=== PATIENT | male | born 1980 | race Caucasian/White ===

== ENCOUNTER 2021-06-11 15:38 | Outpatient (CLI) | payer OTHER, SELFPAY ==
--- NOTE | 2021-06-11 16:00 | MR_ITS ---
WS: [id number] MRI LUMBAR SPINE NONCONTRAST HISTORY: DDD, DISC herniation with MYELOPATHY, HX OF TRAUMATIC VERTEBRAL FX COMPARISON: Lumbar radiographs 08/08/2020 TECHNIQUE: Sagittal and axial multisequence imaging is submitted. Multilevel mild disc bulging and facet joint arthritis throughout the cervical and thoracic spine. No cord compression. Central disc protrusion at T3-4 does contact the ventral thoracic cord. Mild straightening of the normal lumbar lordosis. Anterior and posterior lumbar fusion at the L5-S1 l evel. The disc at L5-S1 is obscured by artifact from the hardware. There is mild disc desiccation at L3-4 and L4-5. No marrow edema or fracture. Conus terminates normally at L1-2 disc level. L1-L2: Normal. L2-L3: Normal. L3-L4: Mild annular disc bulge with a central disc protrusion with fissure. Mild ligamentum flavum an d facet arthritis with hypertrophy. Small amount of fluid in the facet joints. No significant stenosi s. L4-L5: Diffuse annular disc bulge. Mild central stenosis. There is a central disc protrusion which ex tends caudad to the disc space with mild contact and deformity of the ventral thecal sac. Encroachmen t also into the lateral recesses and proximal foramina. Moderate ligamentum flavum hypertrophy and fa cet arthritis. There is contact and compression upon the traversing L5 nerve roots bilaterally but gr eatest on the LEFT. Moderate subarticular recess stenosis with only mild foraminal stenosis. L5-S1: Osteophytic ridging and possible small foraminal disc protrusions with annular fissures. There is a tiny central disc protrusion. Mild RIGHT foraminal stenosis. No contact on the S1 nerve roots. Paravertebral soft tissues are negative. MR/MR lumbar spine wo con* [id number] IMPRESSION: 1. Prior anterior and posterior lumbar fusion at L5-S1. 2. Disc contact and deformity upon the traversing L5 nerve roots greatest on t he LEFT. Moderate bilateral subarticular recess stenosis and mild foraminal ana nosis at L4-5. Mild central stenosis at L4-5 with a central disc protrusion. 3. Mild facet arthritis and ligamentum flavum hypertrophy at L3-4.
== END 2021-06-11 15:39 | disposition home or self-care (01) ==
PROVIDERS: PCP Nurse Practitioner Family; Visit Provider Family Medicine
DX: M51.36 Other intervertebral disc degeneration, lumbar region (principal); M51.06 Intervertebral disc disorders with myelopathy, lumbar region; Z87.81 Personal history of (healed) traumatic fracture; M43.27 Fusion of spine, lumbosacral region; M48.061 Spinal stenosis, lumbar region without neurogenic claudication
CPT/HCPCS: 72148

== ENCOUNTER 2021-07-01 11:43 | Emergency (ER) | payer OTHER, SELFPAY ==
[2021-07-01 12:19] VITALS: RESP 14; BMI 24.3
[2021-07-01 12:44] VITALS: BP 136/87; PULSE 97; RESP 14; O2SAT 97
--- NOTE | 2021-07-01 12:45 | ED_ITS ---
HPI - Back Pain/Injury General: Chief Complaint: Back Pain/Injury Stated Complaint: BACK PAIN Time Seen by Provider: 07/01/21 12:21 Source: patient Mode of arrival: ambulatory Limitations: no limitations History of Present Illness: HPI Narrative: Patient is a 41-year-old male who presents to the ED today with a complaint of acute on chronic lower back pain. Patient tells me he has had lower back pain for several years stemming from an injury while in the . Patient states he underwent a lumbar fusion surgery several years ago and has continued to have pain since. He states he has seen 2 neurosurgeons both of which have told him he needs surgery but patient is awaiting a third opinion from a neurosurgeon in [place]. He has an appointment with them this month. He had an appointment with Dr. Abreu yesterday that he said he purposely missed. Patient does have some radicular discomfort to his back pain. He is not having any issues with urinary retention or bowel incontinence. Associated symptoms: Deny abdominal pain, chills, fatigue or fever(s) Review of Systems Const: Denies: fever(s), chills, body aches, fatigue or malaise Card: Denies: chest pain Resp: Denies: dyspnea GI: Denies: abdominal pain : Denies: difficulty urinating, urinary hesitancy, urinary dribbling or genital pain Musc: Reports: back pain; Denies: neck pain, extremity pain, extremity swelling, joint pain or joint swelling Skin/Breast: Denies: rash Neuro: Denies: headache(s), numbness in extremities, weakness in extremities, sensory changes or dizziness [facility] ED PFSH: Medical History Chronic back pain Essential hypertension History of asthma Jzory-Cusliwsjx-Zwnjd syndrome Surgical History H/O right wrist surgery History of back surgery Family History Father Hypertension Mother Hypertension Family/Other Cancer Daughter No problems noted. Brother Stroke Grandfather Stroke Grandmother Stroke Denies family history of Diabetes CAD (coronary artery disease) Clotting disorder Dementia Chronic kidney disease (CKD) Suicide Anesthesia complication Bleeding disorder Lung disease Social History Smoking and tobacco status: former smoker Alcohol intake: former Physical Exam Const: COMMON NORMALS: no acute distress, average body habitus, patient oriented x3, no limitations, healthy appearing, alert and well nourished GENERAL APPEARANCE: cooperative Back/Pelvis: THORACIC SPINE/UPPER BACK: Yes normal to inspection and Yes thoracic ROM normal LUMBAR SPINE/LOWER BACK: Yes lumbar spinal tenderness Lumbar spinal tenderness location: L3, L4 and L5, Yes paraspinal muscle tenderness and No paraspinal muscle spasm PELVIS: Yes buttocks normal and No sciatic notch tenderness SACROILIAC JOINTS: Yes SI joints normal Extremity: COMMON NORMALS: normal to inspection, full ROM, capillary refill normal, no joint enlargement, no clubbing, cyanosis or edema, no calf tenderness and no pedal edema Neuro: COMMON NORMALS: patient oriented x3, moves all extremities, no focal motor deficits and no sensory deficits noted SENSORIUM/ORIENTATION: Yes alert SENSORY EXAM: Yes other (normal) MOTOR EXAM: 5/5 motor strength present throughout DEEP TENDON REFLEXES: Right patellar reflex intensity grade: 2+ and Left patellar reflex intensity grade: 2+ Skin: COMMON NORMALS: no rashes or lesions noted GENERAL SKIN EXAM: no rashes or lesions noted Course Vital Signs: Vital signs: Vital Signs Pulse Rate 97 07/01/21 12:44 Respiratory Rate 16 07/01/21 13:32 Blood Pressure 136/87 07/01/21 12:44 Pulse Oximetry 97 07/01/21 12:44 MDM - Back Pain/Injury MDM Narrative: Medical decision making narrative: Patient states he has had MRI of his lumbar spine 2 months ago. He has underwent 2 neurosurgical evaluations. He has an upcoming neurosurgical evaluation in [place] later this month. At this time I do not see any need to repeat emergent imaging here. Patient feels better after medications and feels like he can go home at this time. Return to ED precautions given. Discharge Plan Discharge Patient Disposition: Home Clinical Impression: Chronic radicular pain of lower back Condition: Stable Prescriptions: New cyclobenzaprine 10 mg tablet 10 mg PO TID Qty: 14 RF: 0 prednisone 10 mg tablet 60 mg PO DAILY 5 Days Qty: 30 RF: 0 diclofenac sodium 50 mg tablet,delayed release (DR/EC) 50 mg PO Q12H PRN (Reason: pain) Qty: 20 RF: 0 No Action lisinopril 5 mg tablet 5 mg PO DAILY RF: 0 gabapentin 300 mg capsule 300 mg PO TID RF: 0 acetaminophen-codeine 300-30 mg tablet 1 tab PO TID PRNRF: 0 albuterol sulfate [Ventolin HFA] 90 mcg/actuation HFA aerosol inhaler 2 puff inhalation Q6H PRNRF: 0 amlodipine 5 mg tablet 5 mg PO DAILY 30 Days Qty: 30 RF: 5 Discharge Orders: Discharge ED (Routine); Ordered 07/01/21 Ordered By: Fabiola Constantino Referrals: Samantha Frausto FNP [Primary Care Provider] - Coding Level of Care Code ED Injection Molding Machine Offbearer for Benoit Maurice
[2021-07-01] MEDS: orphenadrine 30 mg/mL Inj 2 mL 60 MG IM (13:29)
[2021-07-01 13:32] VITALS: RESP 16
[2021-07-01] MEDS: morphine 4 mg/mL SDV 1 mL IM (13:32)
[2021-07-01] MEDS: dexamethasone 10 mg/mL INJ 8 MG IM (13:36)
[2021-07-01 14:48] VITALS: BP 136/87; PULSE 97; RESP 16
== END 2021-07-01 14:33 | disposition home or self-care (01) ==
PROVIDERS: Emergency Provider Physician Assistant; PCP Nurse Practitioner Family
DX: M54.16 Radiculopathy, lumbar region (principal); I10 Essential (primary) hypertension; I45.6 Pre-excitation syndrome; Z87.891 Personal history of nicotine dependence
CPT/HCPCS: 96372; 99283; J1100; J2270; J2360

== ENCOUNTER 2021-09-17 12:13 | Emergency (ER) | payer OTHER, SELFPAY ==
[2021-09-17 12:29] VITALS: BP 176/109; PULSE 104; RESP 16; TEMP 36.7; O2SAT 98
--- NOTE | 2021-09-17 12:47 | CT_ITS ---
WS: [id number] CT HEAD NONCONTRAST HISTORY: fall on ice and hit head, headache,possible LOC TECHNIQUE: Contiguous axial imaging performed through the brain in 2.5 mm imaging. Bone and soft tiss ue windows. Sagittal and coronal reformats reviewed. All CT scans at [facility] use at least one of these dose optimization techniques: automated exposure control; mA and/or kV adjustment per pa tient size (includes targeted exams where dose is matched to clinical indication); or iterative recon struction. DLP: 891.58 mGy.cm COMPARISON: None available. No acute intracranial hemorrhage, midline shift or mass effect. No atrophy or prior infarcts or herniation. Ventricles: Normal size with no hydrocephalus. Paranasal sinuses: As visualized are clear. Mastoid air cells: Well pneumatized. Calvarium and scalp: Skull is intact with no soft tissue edema or swelling. CT/CT head wo con* [id number] IMPRESSION: Negative head CT.
--- NOTE | 2021-09-17 12:47 | XR_ITS ---
WS: [id number] Exam: XR lumbar spine 2-3V* [id number] Date/Time of Exam: 09/17/2021 12:52 PM Reason For Exam: fall with lower back pain Comparison 08/08/2020. No acute fracture or dislocation. There is interbody fusion of the spine at L5-S1 with posterior rods and pedicle screws. A disc spacer is noted with the fixation plate also noted along the anterior asp ect of the L5-S1 disc. No other postoperative changes. Prominent anterior osteophyte of L4. Remaining posterior elements are intact. Mild levoscoliosis. Remaining disc spaces are preserved. XR/XR lumbar spine 2-3V* [id number] IMPRESSION: 1. Stable-appearing interbody fusion at L5-S1. No sign of hardware failure.
--- NOTE | 2021-09-17 12:48 | ED_ITS ---
HPI - Fall General: Chief Complaint: Fall Stated Complaint: Fall Time Seen by Provider: 09/17/21 12:38 History of Present Illness: Patient is a 41-year-old male comes to the ED after having a fall. Patient says injury occurred just prior to arrival. He was getting out of his vehicle and stepped on the ice slipped and fell backwards. He hit the back of his head on the ground. He is unsure if he lost consciousness or not. He endorses having a headache currently. His other conc terri is his lower back. He has had lumbar spine surgery in the past. After the fall his lower back pain has flared up and he rates it currently a 7 out of 10. He says the pain is on the right side in the lumbar spine and radiates down into the right leg. Denies any cauda equina symptoms. Associated symptoms-after fall: Reports headache(s); Denies abdominal pain, chest pain, hematuria or neck pain Review of Systems Const: Denies: fever(s), chills or fatigue Eyes: Denies: change in vision or eye discomfort ENMT: Denies: throat pain, odynophagia, nasal discharge or nasal congestion Card: Denies: chest pain, palpitations, edema, swelling of feet/ankles, dyspnea on exertion or orthopnea Resp: Denies: dyspnea, productive cough or non-productive cough GI: Denies: abdominal pain, nausea, vomiting, diarrhea, constipation or hematochezia : Denies: flank pain, difficulty urinating, dysuria or hematuria Musc: Reports: back pain; Denies: neck pain or extremity swelling Skin/Breast: Denies: rash or new lesions Neuro: Reports: headache(s); Denies: numbness in extremities or weakness in extremities [facility] PFSH: Medical History Chronic back pain Essential hypertension History of asthma Pqxpd-Atxstdwtu-Ncakw syndrome Surgical History H/O right wrist surgery History of back surgery Family History Father Hypertension Mother Hypertension Family/Other Cancer Daughter No problems noted. Brother Stroke Grandfather Stroke Grandmother Stroke Denies family history of Diabetes CAD (coronary artery disease) Clotting disorder Dementia Chronic kidney disease (CKD) Suicide Anesthesia complication Bleeding disorder Lung disease Social History Smoking and tobacco status: former smoker Alcohol intake: former Physical Exam Const: COMMON NORMALS: no acute distress, patient oriented x3, healthy appearing and alert GENERAL APPEARANCE: cooperative and comfortable HENMT: COMMON NORMALS: normocephalic HEAD & SCALP: normocephalic MOUTH: Normal oral and palatal mucosa present THROAT: posterior oropharynx normal and uvula midline Eye: COMMON NORMALS: Equal, round and reactive pupils present and EOMs intact bilaterally PUPIL: Yes Equal, round and reactive pupils present Neck/C-Spine: COMMON NORMALS: supple GENERAL: Yes normal visual inspection Resp: COMMON NORMALS: normal respiratory effort, No retractions, No use of accessory muscles and clear to auscultation bilaterally AUSCULTATION: clear to auscultation bilaterally Cardio: COMMON NORMALS: regular rate, regular rhythm, S1 normal heart sound present, S2 normal heart sound present, No gallops present (Cardio), No clicks present (Cardio), No murmurs present (Cardio) and Peripheral pulses 2+ throughout RATE: regular rate RHYTHM: regular rhythm HEART SOUNDS: S1 normal heart sound present and S2 normal heart sound present PERIPHERAL PULSES: Peripheral pulses 2+ throughout GI: COMMON NORMALS: Normal to inspection, nondistended, normoactive bowel sounds present, Soft to palpation, non-tender and no masses PALPATION: Yes Soft to palpation : COMMON NORMALS: Yes no CVA tenderness BLADDER/KIDNEY EXAM: Yes no CVA tenderness Back/Pelvis: COMMON NORMALS: no CVA tenderness LUMBAR SPINE/LOWER BACK: Yes pain with ROM, No lumbar spinal tenderness, Yes paraspinal muscle tenderness Lumbar paraspinal muscle tenderness: right and Yes straight leg raise positive right Neuro: COMMON NORMALS: patient oriented x3, CN's II-XII intact bilaterally, moves all extremities, no focal motor deficits and no sensory deficits noted SENSORIUM/ORIENTATION: Yes alert SENSORY EXAM: Yes extremities (intact) MOTOR EXAM: 5/5 motor strength present throughout Skin: GENERAL SKIN EXAM: dry skin Course Vital Signs: Vital signs: Vital Signs Temperature 98.1 F 09/17/21 12:29 Pulse Rate 104 H 09/17/21 12:29 Respiratory Rate 16 09/17/21 12:29 Blood Pressure 176/109 09/17/21 12:29 Pulse Oximetry 98 09/17/21 12:29 MDM - Fall Medical Decision Making Patient is a 41-year-old male who comes to the ED with lower back pain and headache after having a fall. Patient slipped on ice and fell backwards hitting the back of his head and lower back on ground. Unsure if he had loss of consciousness. Currently has a headache and back pain that radiates down to his right leg. Denies any cauda equina symptoms. Vitals are stable. Neuro exam is benign. He does have some palpable right sided lumbar paraspinal muscle tenderness. X-ray of lumbar spine showed no acute fractures and showed stable appearing fusion at L5-S1. No signs of hardware failure. CT of head showed no acute findings. Patient was diagnosed with minor head injury and lumbar radiculopathy. He was sent home with a prescription for celebrex, methocarbamol and prednisone. He was told to follow-up with his PCP in 5 to 7 days for reevaluation. Return to ED precautions given. Patient understood and agree w ith plan. Lab Data Radiology Impressions Head CT 09/17/21 12:47 IMPRESSION: Negative head CT. Lumbar Spine X-Ray 09/17/21 12:47 IMPRESSION: 1. Stable-appearing interbody fusion at L5-S1. No sign of hardware failure. Discharge Plan Discharge Patient Disposition: Home Clinical Impression: Lumbar radiculopathy Minor head injury Qualifiers: Encounter type: initial encounter Qualified Code(s): S09.90XA - Unspecified injury of head, initial encounter Condition: Stable Prescriptions: New Celebrex 100 mg capsule 100 mg PO BID PRN (Reason: pain) Qty: 20 0RF prednisone 20 mg tablet 20 mg PO BID 5 Days Qty: 10 0RF methocarbamol 750 mg tablet 750 mg PO Q8H PRN (Reason: muscle spasm and pain) Qty: 20 0RF No Action lisinopril 5 mg tablet 5 mg PO DAILY 0RF gabapentin 300 mg capsule 300 mg PO TID 0RF acetaminophen-codeine 300-30 mg tablet 1 tab PO TID PRN0RF albuterol sulfate [Ventolin HFA] 90 mcg/actuation HFA aerosol inhaler 2 puff inhalation Q6H PRN0RF amlodipine 5 mg tablet 5 mg PO DAILY 30 Days Qty: 30 5RF cyclobenzaprine 10 mg tablet 10 mg PO TID Qty: 14 0RF diclofenac sodium 50 mg tablet,delayed release (DR/EC) 50 mg PO Q12H PRN (Reason: pain) Qty: 20 0RF Discharge Orders: Discharge ED (Routine); Ordered 09/17/21 Ordered By: Rajiv Kebede Referrals: Samantha Frausto FNP [Primary Care Provider] - Discharge Diet: Regular Discharge Activity: Increase activity as tolerated Patient Instructions: Concussion (ED), Head Injury (ED), Lumbar Radiculopathy (ED) Activity Restrictions/Additional Instructions: Follow-up with medical provider as directed in 5 to 7 days for reevaluation. Take medications as prescribed. You can start taking your steroid tomorrow, since you are given dose of steroid here in the ED. Methocarbamol is a muscle relaxer and can cause some drowsiness so take at night before going to bed. Apply heat or cold pack on lower back to help with symptoms. Return to the ER or your medical provider if condition worsens. Please read and understand discharge instructions. Thank you for choosing [facility] for your healthcare needs today. Please realize this is an emergency room and that we are providing you with a medical screening exam and this may not be complete and all inclusive of all the testing and or work up that you may need to determine your ailment or severity of your illness. It is very important that you follow up as instructed or that you return to the Emergency Department should you have concerns or if your condition changes or worsens in any way. Coding Level of Care Code ED Program Control Analyst for Benoit Maurice Exam Comprehensive
[2021-09-17] MEDS: orphenadrine 30 mg/mL Inj 2 mL 60 MG IM (13:38)
[2021-09-17] MEDS: ketorolac 60 mg/2 mL INJ IM (13:40)
== END 2021-09-17 14:45 | disposition home or self-care (01) ==
PROVIDERS: Emergency Provider Physician Assistant; PCP Nurse Practitioner Family
DX: S09.8XXA Other specified injuries of head, initial encounter (principal); M54.16 Radiculopathy, lumbar region; I10 Essential (primary) hypertension; I45.6 Pre-excitation syndrome; Z87.891 Personal history of nicotine dependence; W00.0XXA Fall on same level due to ice and snow, initial encounter
CPT/HCPCS: 70450; 72100; 96372; 99283; J1885; J2360; J2930

== ENCOUNTER 2023-01-06 13:51 | Emergency (ER) | payer OTHER, SELFPAY ==
[2023-01-06] VITALS (7 sets, daily range): BP systolic 105–132; BP diastolic 79–98; PULSE 92–120; RESP 17–19; TEMP 36.8; O2SAT 96–100
--- NOTE | 2023-01-06 14:03 | ECG_ITS ---
[facility] Test Date: 2023-01-06 Pat Name: Ravinder Greene Department: Room: Gender: Male Psychiatric Orderly: : 1980 Requested By: Иван Hawkins Order Number: [id number] Diana MD: Gabby Cardenas M.D. Measurements Intervals [place] Rate: 125 P: 53 SD: 154 QRS: 33 QRSD: 104 T: 97 QT: 336 QTc: 485 Interpretive Statements SINUS TACHYCARDIA NONSPECIFIC ST & T-WAVE ABNORMALITY No previous ECG available for comparison Electronically Signed On 01-06-2023 16:31:47 CDT by Gabby Cardenas M.D. [id number]
--- NOTE | 2023-01-06 14:30 | XRR_ITS ---
PROCEDURE INFORMATION: Exam: XR Chest Exam date and time: 01/06/2023 2:34 PM Age: 42 years old Clinical indication: Pain; Chest pressure; Additional info: Dyspnea/cough TECHNIQUE: Imaging protocol: Radiologic exam of the chest. Views: 1 view. COMPARISON: No relevant prior studies available. FINDINGS: Lungs: Unremarkable. No consolidation. Pleural spaces: Unremarkable. No pleural effusion. No pneumothorax. Heart/Mediastinum: Unremarkable. No cardiomegaly. Bones/joints: Unremarkable. XR/XR chest 1V portable [id number] IMPRESSION: No acute findings.
[2023-01-06] MEDS: aspirin 81 mg Chew Tablet 324 MG PO (14:38)
[2023-01-06 14:59] LABS: Basophils % 0.2 %; Eosinophils % 0.2 %; Hematocrit 42.8 % (42.0-52.0); Hemoglobin 14.7 g/dL (11.7-16.6); Lymphocytes # 1.5 10^3/uL (0.8-4.8); Lymphocytes % 33.3 %; Mean Corpuscular HGB Conc 34.3 g/dL (30.0-36.0); Mean Corpuscular Hemoglobin 31.1 pg (28.0-34.0); Mean Corpuscular Volume 90.7 fl (80-94); Mean Platelet Volume 10.7 fL (7.4-10.4); Monocytes # 0.3 10^3/uL (0.2-0.9); Monocytes % 5.8 %; Neutrophils # 2.78 10^3/uL (1.8-7.7); Neutrophils % 60.3 %; Nucleated Red Blood Cells % 0 %; Platelet Count 278 10^3/cmm (130-400); Red Blood Count 4.72 10^6/uL (4.1-5.3); Red Cell Distribution Width 11.3 % (12.1-15.1); White Blood Count 4.6 10^3/uL (4.0-10.0)
[2023-01-06] MEDS: sodium chloride 0.9% 1,000 ML 999 ML IV (15:05)
[2023-01-06 15:16] LABS: Troponin(5th) Baseline 6 ng/L (0-15)
[2023-01-06 15:18] LABS: Alanine Aminotransferase 43 U/L (0-41); Albumin Level 4.5 g/dL (3.5-5.2); Alkaline Phosphatase 54 U/L (40-130); Anion Gap 20.3 (5-19); Aspartate Amino Transferase 25 U/L (0-40); Blood Urea Nitrogen 10 mg/dL (6-20); Calcium 8.9 mg/dL (8.5-10.5); Carbon Dioxide 18 mmol/L (22-29); Chloride 103 mmol/L (98-107); Globulin 2.8 g/dL (1.3-4.6); Glomerular Filtration Rate 107.1 mL/min (90-130); Glucose 194 mg/dL (65-115); Osmolality Calculated 290 mOsm/kg (285-295); Potassium 3.3 mmol/L (3.5-5.1); Sodium 138 mmol/L (136-145); Total Bilirubin 0.4 mg/dL (0.15-1.2); Total Protein 7.3 g/dL (6.6-8.7)
--- NOTE | 2023-01-06 15:27 | W.ED.CHESTPA ---
HPI - Chest Pain General: Chief Complaint: Chest Pain Stated Complaint: cp Time Seen by Provider: 01/06/23 14:24 Source: patient Mode of arrival: ambulatory History of Present Illness: 42-year-old male presents to the emergency room with complaint of chest pain dizziness rapid heart rate. Said this has been happening intermittently for the last few weeks intermittently. He also notes orthostasis, he states anytime he sits up or stands up he gets very lightheaded and dizzy at times will feel like he is going to pass out he is never had any complete syncopal episodes. He has some chest discomfort he is noticed anything that aggravates or relieves it. He has a history of [place] Parkinson's White little over 10 years ago he had a ablation despite this he has continued to have mild tachycardia intermittently since. He has a history of hypertension he is not on any negative inotropes he is on amlodipine and lisinopril. He does not take any anticoagulants. MD complaint: chest pain Onset (ago): hour(s) Timing of current episode: episodic Pain location: substernal and left chest Pain radiation: none Severity: mild Quality: tightness and aching Relieving factors: nothing Exacerbating factors: nothing Associated symptoms: Deny abdominal pain, diaphoresis, dyspnea, fever(s), leg edema, nausea, palpitations, sense of impending doom, syncope or vomiting Review of Systems Const: Denies: fever(s), chills, fatigue, malaise or diaphoresis ENMT: Denies: throat pain, ear or mastoid pain, nasal discharge or nasal congestion Card: Denies: chest pain, palpitations or syncope Resp: Denies: dyspnea GI: Denies: abdominal pain, nausea or vomiting : Denies: flank pain, dysuria, urinary frequency or urinary urgency Skin/Breast: Denies: rash or pruritus PFSH ED PFSH: Medical History Chronic back pain Essential hypertension History of asthma Ejiub-Nkoglodxi-Fbtvz syndrome Surgical History H/O right wrist surgery History of back surgery Family History Father Hypertension Mother Hypertension Family/Other Cancer Daughter No problems noted. Brother Stroke Grandfather Stroke Grandmother Stroke Denies family history of Diabetes CAD (coronary artery disease) Clotting disorder Dementia Chronic kidney disease (CKD) Suicide Anesthesia complication Bleeding disorder Lung disease Social History Smoking and tobacco status: former smoker Alcohol intake: former Substance/Drug Use: never Physical Exam Const: GENERAL APPEARANCE: cooperative and comfortable ORIENTATION/CONSCIOUSNESS: Yes awake, Yes oriented to person, Yes oriented to place and Yes oriented to time HENMT: COMMON NORMALS: normocephalic, atraumatic and hearing grossly normal bilaterally HEAD & SCALP: normocephalic and atraumatic Resp: COMMON NORMALS: normal respiratory effort, No retractions, No use of accessory muscles and clear to auscultation bilaterally AUSCULTATION: clear to auscultation bilaterally Cardio: COMMON NORMALS: regular rate, regular rhythm and No murmurs present (Cardio) RATE: regular rate RHYTHM: regular rhythm GI: COMMON NORMALS: Soft to palpation and No hepatosplenomegaly present AUSCULTATION: Yes normoactive bowel sounds PALPATION: Yes Soft to palpation, No Tenderness to palpation present (GI), No Guarding due to palpation present (GI) and Yes No hepatosplenomegaly present Extremity: COMMON NORMALS: normal to inspection, capillary refill normal, no clubbing, cyanosis or edema, no calf tenderness and no pedal edema Neuro: SENSORIUM/ORIENTATION: Yes oriented to person, Yes oriented to place and Yes oriented to time Skin: COMMON NORMALS: no rashes or lesions noted GENERAL SKIN EXAM: no rashes or lesions noted Course Vital Signs: Vital signs: Vital Signs Temperature 98.2 F 01/06/23 14:01 Pulse Rate 98 01/06/23 18:12 Respiratory Rate 19 H 01/06/23 18:12 Blood Pressure 117/98 01/06/23 18:12 Pulse Oximetry 97 01/06/23 18:12 Oxygen Delivery Me thod Room Air 01/06/23 14:01 MDM - Chest Pain Medical Decision Making Labs imaging and EKG reviewed. There is no delta waves on his EKG rate is well controlled troponins negative no significant findings lab work. We will discharge patient home, stop lisinopril 10 mg and have him follow-up with his primary care doctor return if he has further problems. Suspect several of his symptoms may be due to intermittent low blood pressure. Particularly the dizziness. If he has further chest pain return to the emergency room follow-up with his primary care doctor for further evaluation regarding chest discomfort. Do recommend he take a baby aspirin daily. Medical Records I reviewed the patient's medical records. Lab Data I reviewed the patient's lab results. 01/06/23 14:13 01/06/23 14:13 Radiology Impressions Chest X-Ray 01/06/23 14:30 IMPRESSION: No acute findings. Laboratory Results WBC 4.6 10^3/uL (4.0-10.0) 01/06/23 14:13 RBC 4.72 10^6/uL (4.1-5.3) 01/06/23 14:13 Hgb 14.7 g/dL (11.7-16.6) 01/06/23 14:13 Hct 42.8 % (42.0-52.0) 01/06/23 14:13 MCV 90.7 fl (80-94) 01/06/23 14:13 MCH 31.1 pg (28.0-34.0) 01/06/23 14:13 MCHC 34.3 g/dL (30.0-36.0) 01/06/23 14:13 RDW 11.3 % (12.1-15.1) L 01/06/23 14:13 Plt Count 278 10^3/cmm (130-400) 01/06/23 14:13 MPV 10.7 fL (7.4-10.4) H 01/06/23 14:13 Neut % (Auto) 60.3 % 01/06/23 14:13 Lymph % (Auto) 33.3 % 01/06/23 14:13 [place] % (Auto) 5.8 % 01/06/23 14:13 Eos % (Auto) 0.2 % 01/06/23 14:13 Baso % (Auto) 0.2 % 01/06/23 14:13 Neut # (Auto) 2.78 10^3/uL (1.8-7.7) 01/06/23 14:13 Lymph # (Auto) 1.5 10^3/uL (0.8-4.8) 01/06/23 14:13 [place] # (Auto) 0.3 10^3/uL (0.2-0.9) 01/06/23 14:13 Eos # (Auto) 0.0 10^3/uL (0.0-0.8) 01/06/23 14:13 Baso # (Auto) 0.0 10^3/uL (0.0-0.1) 01/06/23 14:13 Nucleated RBC % (auto) 0 % 01/06/23 14:13 Nucleated RBCs # 0.0 /100WBC 01/06/23 14:13 Sodium 138 mmol/L (136-145) 01/06/23 14:13 Potassium 3.3 mmol/L (3.5-5.1) L 01/06/23 14:13 Chloride 103 mmol/L (98-107) 01/06/23 14:13 Carbon Dioxide 18 mmol/L (22-29) L 01/06/23 14:13 Anion Gap 20.3 (5-19) H 01/06/23 14:13 BUN 10 mg/dL (6-20) 01/06/23 14:13 Creatinine 0.8 mg/dL (0.7-1.2) 01/06/23 14:13 GFR Calculation 107.1 mL/min (90-130) 01/06/23 14:13 Glucose 194 mg/dL (65-115) H 01/06/23 14:13 Calculated Osmolality 290 mOsm/kg (285-295) 01/06/23 14:13 Calcium 8.9 mg/dL (8.5-10.5) 01/06/23 14:13 Total Bilirubin 0.4 mg/dL (0.15-1.2) 01/06/23 14:13 AST 25 U/L (0-40) 01/06/23 14:13 ALT 43 U/L (0-41) H 01/06/23 14:13 Alkaline Phosphatase 54 U/L (40-130) 01/06/23 14:13 Troponin T Baseline 6 ng/L (0-15) 01/06/23 14:13 Troponin T 120 Minute 6.00 ng/L (0-15) 01/06/23 16:23 Delta Troponin T 0 ABS# (0-10) 01/06/23 16:23 Total Protein 7.3 g/dL (6.6-8.7) 01/06/23 14:13 Albumin 4.5 g/dL (3.5-5.2) 01/06/23 14:13 Globulin 2.8 g/dL (1.3-4.6) 01/06/23 14:13 TSH 0.65 uIU/mL (0.27-4.20) 01/06/23 14:13 Urine Color Yellow (Yellow) 01/06/23 15:53 Urine Appearance Clear (CLEAR) 01/06/23 15:53 Urine pH 6 (5-7) 01/06/23 15:53 Ur Specific [place] 1.010 (1.005-1.030) 01/06/23 15:53 Urine Protein Neg (Negative) 01/06/23 15:53 Urine Glucose (UA) Norm (Normal) 01/06/23 15:53 Urine Ketones Negative (Negative) 01/06/23 15:53 Urine Blood Neg (Negative) 01/06/23 15:53 Urine Nitrate Negative (Negative) 01/06/23 15:53 Urine Bilirubin Neg (Negative) 01/06/23 15:53 Urine Urobilinogen Norm mg/dL (Negative) 01/06/23 15:53 Ur Leukocyte Esterase Negative (Negative) 01/06/23 15:53 Discharge Plan Discharge Patient Disposition: Home Clinical Impression: Essential hypertension, Decrb-Cfxxqyrjo-Vhcql syndrome, Medication side effect Condition: Stable Prescriptions: Discontinued lisinopril 10 mg tablet 10 mg PO DAILY No Action albuterol sulfate [Ventolin HFA] 90 mcg/actuation HFA aerosol inhaler 2 puff inhalation Q6H PRN (Reason: Shortness Of Breath Or Wheezing) carisoprodol 350 mg tablet 350 mg PO BID alprazolam 1 mg tablet 1 mg PO TID oxycodone-acetaminophen 10-325 mg tablet 1 tab PO QID morphine 15 mg tablet See Rx Instructions .ROUTE .COMPLEX Rx Instructions: 15 mg orally DIRECTED zolpidem 12.5 mg tablet,ext release multiphase 12.5 mg PO QPM Discharge Orders: Discharge ED (Routine); Ordered 01/06/23 Ordered By: Иван Gallardo Referrals: Samantha Frausto FNP [Primary Care Provider] - Discharge Diet: Usual diet Discharge Activity: Resume usual activity Patient Instructions: Opioid Safety, Pain Management Activity Restrictions/Additional Instructions: Recommend you stop your lisinopril. Recheck blood pressure with primary care doctor within the next week. Coding Level of Care Code ED Hospice Clinical Supervisor for [facility]
[2023-01-06 15:32] LABS: Thyroid Stimulating Hormone 0.65 uIU/mL (0.27-4.20)
[2023-01-06] MEDS: ketorolac 30 mg/mL INJ IVP (15:55)
[2023-01-06 16:00] LABS: Add Urine Microscopic? NO; Charge for UA Resulting for Rev
[2023-01-06 16:04] LABS: Bilirubin Urine Neg (Negative); Blood Urine Neg (Negative); Glucose Urine UA Norm (Normal); Ketones Urine Negative (Negative); Leukocyte Esterase Urine Negative (Negative); Nitrate Urine Negative (Negative); Protein Urine Neg (Negative); Urine Appearance Clear (CLEAR); Urine Color Yellow (Yellow); Urobilinogen Urine Norm (Negative); pH Urine 6 (5-7)
[2023-01-06 17:30] LABS: Troponin 5 2HR Delta 0 ABS# (0-10)
== END 2023-01-06 18:13 | disposition home or self-care (01) ==
PROVIDERS: Emergency Provider Family Medicine; PCP Nurse Practitioner Family
DX: R07.89 Other chest pain (principal); I95.1 Orthostatic hypotension; T46.4X5A Adverse effect of angiotensin-converting-enzyme inhibitors, initial encounter; I10 Essential (primary) hypertension; Z87.891 Personal history of nicotine dependence; I45.6 Pre-excitation syndrome
CPT/HCPCS: 36415; 71045; 80053; 81003; 84443; 84484; 85025; 93005; 96374; 99285; J1885; J7030

== ENCOUNTER 2023-03-30 21:26 | Emergency (ER) | payer OTHER, SELFPAY ==
[2023-03-30 21:31] VITALS: BP 150/87; PULSE 127; RESP 16; TEMP 36.8; O2SAT 93; BMI 23.1
--- NOTE | 2023-03-30 21:36 | XRR_ITS ---
PROCEDURE INFORMATION: Exam: XR Right Hand Exam date and time: 03/30/2023 9:43 PM Age: 43 years old Clinical indication: Pain; Hand; Right TECHNIQUE: Imaging protocol: Radiologic exam of the right hand. Views: 3 or more views. COMPARISON: No relevant prior studies available. FINDINGS: Bones/joints: Negative for fractures. Normal joint space alignments. No erosion. Surgical plate fixates the volar surface the distal radius. Soft tissues: Normal. XR/XR hand RT min 3V* [id number] IMPRESSION: Negative for acute pathology.
--- NOTE | 2023-03-30 21:36 | XRR_ITS ---
PROCEDURE INFORMATION: Exam: XR Right Wrist Exam date and time: 03/30/2023 9:43 PM Age: 43 years old Clinical indication: Pain; Hand; Right TECHNIQUE: Imaging protocol: Radiologic exam of the right wrist. Views: 3 or more views. COMPARISON: No relevant prior studies available. FINDINGS: Bones/joints: Negative for acute fractures. Normal joint space alignments. Mild osseous spurring between carpal bones. Corticated ossicle distal to the ulna. Surgical plate fixates distal radius bowel loosening. Soft tissues: Normal. XR/XR wrist RT min 3V* [id number] IMPRESSION: Negative for acute pathology.
--- NOTE | 2023-03-30 22:02 | W.ED.EXTPRO ---
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 and has been hitting a punching bag he states this morning when he was punching the bag he started having severe pain over the right ulnar portion of his hand and wrist states its been painful throughout the day much worse with movement improved with rest rates the pain a 5 out of 10 Associated symptoms: Deny chest pain, fever(s) or rash Review of Systems Const: Denies: fever(s) or chills ENMT: Denies: throat pain or dental pain Card: Denies: chest pain Resp: Denies: dyspnea GI: Denies: abdominal pain Musc: Reports: extremity pain; Denies: neck pain or back pain Skin/Breast: Denies: rash Neuro: Denies: headache(s) PFSH ED PFSH: Medical History Chronic back pain Essential hypertension History of asthma Mzmye-Uyvqrkasq-Oaygx syndrome Surgical History H/O right wrist surgery History of back surgery Family History Father Hypertension Mother Hypertension Family/Other Cancer Daughter No problems noted. Brother Stroke Grandfather Stroke Grandmother Stroke Denies family history of Diabetes CAD (coronary artery disease) Clotting disorder Dementia Chronic kidney disease (CKD) Suicide Anesthesia complication Bleeding disorder Lung disease Social History Smoking and tobacco status: former smoker Alcohol intake: former Substance/Drug Use: never Physical Exam Const: COMMON NORMALS: no acute distress and patient oriented x3 HENMT: COMMON NORMALS: atraumatic HEAD & SCALP: atraumatic Eye: COMMON NORMALS: conjunctivae normal CONJUNCTIVA: Yes conjunctivae normal Neck/C-Spine: COMMON NORMALS: supple Resp: COMMON NORMALS: normal respiratory effort Cardio: COMMON NORMALS: regular rate RATE: regular rate GI: INSPECTION: Yes normal to inspection Extremity: NARRATIVE EXTREMITY EXAM: Tenderness along right ulnar portion of wrist and hand no obvious deformity Neuro: COMMON NORMALS: patient oriented x3 Psych: COMMON NORMALS: mental status grossly normal Skin: COMMON NORMALS: no rashes or lesions noted GENERAL SKIN EXAM: no rashes or lesions noted Course Vital Signs: Vital signs: Vital Signs Temperature 98.2 F 03/30/23 21:31 Pulse Rate 127 H 03/30/23 21:31 Respiratory Rate 16 03/30/23 21:31 Blood Pressure 150/87 03/30/23 21:31 Pulse Oximetry 93 03/30/23 21:31 MDM - Extremity (Nontraumatic) Medical Decision Making Patient presents here with hand and wrist pain likely a sprain x-ray shows no fracture here. He is stable for discharge she is to follow-up with PCP and return if worsening he understands agrees to plan. Medical Records I reviewed the patient's medical records. Lab Data I reviewed the patient's lab results. Radiology Impressions Hand X-Ray 03/30/23 21:36 IMPRESSION: Negative for acute pathology. Wrist X-Ray 03/30/23 21:36 IMPRESSION: Negative for acute pathology. Discharge Plan Discharge Patient Disposition: Home Clinical Impression: Sprain and strain of wrist Condition: Stable Prescriptions: New Naprosyn 500 mg tablet 500 mg PO BID PRN (Reason: pain) Qty: 20 0RF No Action albuterol sulfate [Ventolin HFA] 90 mcg/actuation HFA aerosol inhaler 2 puff inhalation Q6H PRN (Reason: Shortness Of Breath Or Wheezing) carisoprodol 350 mg tablet 350 mg PO BID alprazolam 1 mg tablet 1 mg PO TID oxycodone-acetaminophen 10-325 mg tablet 1 tab PO QID morphine 15 mg tablet See Rx Instructions .ROUTE .COMPLEX Rx Instructions: 15 mg orally DIRECTED zolpidem 12.5 mg tablet,ext release multiphase 12.5 mg PO QPM Discharge Orders: Discharge ED (Routine); Ordered 03/30/23 Ordered By: Quin Calles Discharge Diet: Advance as tolerated Discharge Activity: Resume usual activity Patient Instructions: Wrist Sprain (ED) Coding Level of Care Code ED Industrial Production Manager for [facility]
[2023-03-30] MEDS: naproxen 500 mg Tablet PO (22:05)
--- NOTE | 2023-03-31 08:03 | DCPLANNER ---
Addendum entered by Sofia Singh 04/07/23 14:52: curriculum development manager received the following message form the ortho clinic regarding follow up appointment: attempt made to contact patient - number states wireless customer is not available - will mail letter to call out clinic to schedule w/ KRISTIE Muniz with in 1-2 weeks Original Note: curriculum development manager had message to schedule a follow up appointment for patient with ortho. curriculum development manager sent patients information to the front office staff at ortho. Patients information will be printed and reviewed. Clinic will call patient with appointment information.
--- NOTE | 2023-03-31 09:31 | DCPLANNER ---
Addendum entered by Sofia Singh 04/01/23 09:27: manager medicare called patient due to no primary care physician - [facility], does not remember name of provider. Original Note: manager medicare called patient due to no primary care physician - no answer at this time, recording stated that wireless customer is not available, to try again later.
== END 2023-03-30 22:41 | disposition home or self-care (01) ==
PROVIDERS: Emergency Provider Emergency Medicine
DX: S63.501A Unspecified sprain of right wrist, initial encounter (principal); S66.911A Strain of unspecified muscle, fascia and tendon at wrist and hand level, right hand, initial encounter; Z87.891 Personal history of nicotine dependence; I10 Essential (primary) hypertension; W11.XXXA Fall on and from ladder, initial encounter
CPT/HCPCS: 73110; 73130; 99283

== ENCOUNTER 2023-07-08 11:33 | Outpatient (CLI) | payer OTHER, SELFPAY ==
--- NOTE | 2023-07-08 11:41 | US_ITS ---
WS: [id number] Exam: US scrotum [id number] Date/Time of Exam: 07/08/2023 12:04 PM Reason For Exam: R TESTICLE PAIN There is no sign of testicular mass or nodule. The testicles demonstrate normal echotexture. Both rola ticles are well perfused when evaluated with color flow Doppler. The RIGHT testicle measures 5.3 x 2. 4 x 3.7 cm. The LEFT testicle measures 5.1 x 2.44 x 3.8 cm. No hydrocele or varicocele identified. Th e epididymis are not visualized within degree of certainty. No scrotal wall abnormalities were demon strated. Evaluation of the RIGHT inguinal region demonstrated no sign of obvious hernia. IMPRESSION: 1. No indication of testicular mass, torsion or other significant finding in the scrotum.
== END 2023-07-08 11:34 | disposition home or self-care (01) ==
LOC: RAD 11:34
PROVIDERS: Visit Provider Family Medicine
DX: N50.811 Right testicular pain (principal)
CPT/HCPCS: 76870